=== PATIENT | female | born 1945 | race Caucasian/White ===

== ENCOUNTER 2018-11-15 20:23 | Inpatient (IN) | payer OTHER ==
[~2018-11-15] VITALS: Ht 154 cm; Wt 76.0 kg
[2018-11-15 20:25] VITALS: BP 146/68
--- NOTE | 2018-11-16 00:52 | NUR ---
PT ARRIVES TO UNIT VIA CART ACCOMPNIED BY AMBULANCE MOE FROM [facility] AT APPROX 1945. REPORTED TO HAVE BEEN BROUGHT IN BY BASKETBALL SCOUT AT [facility] CAROL FERNANDEZ [phone] WITH REPORTED INCREASING CONFUSION AND MOOD SWINGS-ERRATIC BEHAVIOR ACCORDING TO SHARI TREVIÑO-HE REPORTS PT "JUST ISN'T RIGHT" PER ED NOTES WITH NO SPECIFIC BEHAVIOR IDENTIFIED-ED NOTES REPORT PT TO BE LABILE-WITH EPISODES OF LOUD YELLING AND AGITATION AND EPISODES OF CALM COOPERATIVE BEHAVIOR. UPON INITITAL OBSERVATION UPON ARRIVAL TO UNIT JED IS NOTED TO BE SPEAKING RAPIDLY AND TO NO ONE IN PARTICULAR-AND CONVERSATION IS NOT RELEVENT TO TOPIC BEING DISCUSSED BY ENCODING CLERK PROVIDING TRANSPORT. HOWEVER UPON REAPPROACH APPROX 15 MINUTES LATER FOR ADMIT INTERVIEW WAS NOTED TO BE ORIENTED X3-ABLE TO PROVIDE HISTORY AND ANSWER QUESTIONS IN AN APPROPRIATE MANNER-CONVERSATION RELEVENT AND GOAL DIRECTED. NO NOTED OR REPORTED DELUSIONAL THINKING-AND SHOWS INSIGHT INTO MOOD ISSUES STATING "IT ISN'T TOO BAD NOW BUT I CAN TELL I'M NOT RIGHT IN THE HEAD AND I DON'T WANT IT TO GET WORSE-I HAVE TRIED TO KILL MYSELF BEFORE" VS OBTAINED,ORIENTED TO ROOM AND UNIT-OFFERED AND ACCEPTED PM SNACK AND H20. DENIES COMPLAINTS OF PAIN OR DISCOMFORT. AMBULATES WITH SBAX1 AND ROLLER WALKER
[2018-11-16 16:11] VITALS: BP 139/81
--- NOTE | 2018-11-16 16:23 | NUR ---
ASSUMED CARE AT 0715 TODAY. PT. IN BED WHEN STAFF ARRIVED. IS DRESSED IN HOSPITAL GOWN. UP FOR BREAKFAST. TOOK MEDICATIONS WITHOUT DIFFICULTY. INTERACTING WITH PEERS AND STAFF ALTHOUGH IT IS GUARDED INTERACTIONS. PT. WOULD BE ANXIOUS AT TIMES DURING INTERACTIONS AND CALM AT OTHER TIMES. NO ACTING OUT BEHAVIORS NOTED. DID ATTEND GROUPS WITH OTHER PEERS, BUT NOTICED BY THIS STAFF TO INTERACT WITH PEERS. ATE MEALS IN DINING ROOM. INDEPENDENT AMBULATION AND TOILETING NOTED. SPOKE WITH DR. PALMA AND DR. ZAMORA TODAY.
[2018-11-16 16:48] VITALS: BP 157/70
--- NOTE | 2018-11-16 17:05 | EKG ---
[place] [address] [address] [facility] [place] [address] ELECTROCARDIOGRAM REPORT Name: JED TREVIÑO Room #: 525- ADM IN M.R.#: [id number] ������������������ Admission: 11/15/18 ������������������ Attend Phys: Elías Flower DO Discharge: ������������������ Date of : 45 Report #: [id number] ����������������������������������������������������������������� [id number] THIS REPORT FOR: //name// [facility] Test Date: 2018-11-16 Test Time: 07:19:14 Pat Name: JED TREVIÑO Department: Room: [facility] Gender: F Data Integrity Analyst: ZAFAR : 1945 Requested By: Elías Flower Order Number: [id number] MD: Frankie Butterfield Measurements Intervals Force Rate: 71 P: 51 LA: 160 QRS: -28 QRSD: 109 T: -13 QT: 419 QTc: 456 Interpretive Statements Sinus rhythm Left ventricular hypertrophy Nonspecific T abnormalities, inferior leads No previous ECG available for comparison Electronically Signed On 11-16-2018 17:05:19 CDT by Frankie Butterfield [email or web address] ��������������������������������������������� <ELECTRONICALLY SIGNED> ���������������������������������������� By: Frankie Butterfield MD, [facility] ��������������������������������������������� 11/16/18 1705 0719 8 Frankie Butterfield MD, FACC /EPI
[2018-11-16 19:22] VITALS: BP 176/73
[2018-11-16 22:56] VITALS: BP 176/73
--- NOTE | 2018-11-17 04:50 | NUR ---
PT QUIET AND ON THE EDGE OF THE GROUP THIS PM. GOES IN AND OUT OF HER ROOM, BUT HAS STAYED MAINLY IN THE DAYROOM MOST OF THE NIGHT. IRRITABLE, AND SULLEN. RESPONDS TO STAFF IN SHORT HASEEB ANSWERS.
[2018-11-17 05:44] LABS: ABSOLUTE NEUTROPHILS 6.2 thou/uL (1.4-8.2); BASOPHILS 1.1 % (0.0-2.0); EOSINOPHILS 1.6 % (0.0-3.0); HEMATOCRIT 36.4 % (37.0-47.0); HEMOGLOBIN 12.1 gm/dL (12.0-15.0); LYMPHOCYTES 15.6 % (24.0-44.0); MCH 26.9 pg (26.0-34.0); MCHC 33.2 g/dL (28.0-37.0); MONOCYTES 10.7 % (1.0-8.0); PLATELET COUNT 291 thou/uL (150-400); RBC 4.49 mil/uL (4.20-5.00); RDW 14.4 % (10.5-14.5); WBC 8.7 thou/uL (4.0-11.0)
[2018-11-17 05:58] LABS: CREATININE 1.7 mg/dL (0.6-1.0); MAGNESIUM 1.8 mg/dL (1.8-2.4); POTASSIUM 4.2 mmol/L (3.5-5.1)
[2018-11-17 08:23] VITALS: BP 138/58
--- NOTE | 2018-11-17 15:50 | NUR ---
PATIENT HAS BEEN UP AND OUT ON THE UNIT MOST OF THE DAY, AMBULATES WITH ASSIST OF ROLLER WALKER, GAIT SLIGHTLY UNSTEADY. PATIENT TOOK ALL HER MORNING MEDICATION WHOLE WITHOUT DIFFICULTY. PATIENT IS EATING MEALS AND DRINKING FLUID WELL. SHE DENIES SUICIDAL AND HOMOCIDAL IDEATION. PATIENT RATED DEPRESSION 5/10, ANXIETY 4/10. PATIENT PRESENTS WITH EMOTIONS, CRIES INTERMITTENTLY. MOOD IS DEPRESSED, AFFECT IS SAD AND FLAT. PATIENT DENIES AUDITORY/VISUAL HALLUCINATIION, SHE PARTICIPATED IN GROUP THERAPY, WILL MONITOR FOR SAFETY.
[2018-11-17 17:40] LABS: URINE BILIRUBIN NEGATIVE (Negative); URINE BLOOD NEGATIVE (Negative); URINE CLARITY CLEAR; URINE COLOR YELLOW; URINE GLUCOSE-RANDOM* NEGATIVE (Negative); URINE KETONES NEGATIVE (Negative); URINE LEUKOCYTES-REFLEX NEGATIVE (Negative); URINE NITRITE-REFLEX NEGATIVE (Negative); URINE PROTEIN (DIPSTICK) NEGATIVE (Negative); URINE UROBILINOGEN 0.2 E.U./dl (0.2-1.0)
[2018-11-17 20:10] VITALS: BP 150/51
--- NOTE | 2018-11-17 23:16 | H ---
[facility] [place] [address] HISTORY AND PHYSICAL Name: JED TREVIÑO Room #: 525B-B ADM IN M.R.#: [id number] Admission: 11/15/18 ������������������ Attend Phys: Elías Flower DO Discharge: ������������������ Date of : 45 Report #: [id number] THIS REPORT FOR: //name// CC: Elías Flower [facility] unknown DATE OF SERVICE: 11/16/2018 INPATIENT PSYCHIATRIC EVALUATION ATTENDING PHYSICIAN: Elías Flower DO CONSULTING HOSPITALIST: Juany Woody MD REASON FOR ADMISSION: Psychosis, self-care failure. SOURCE OF INFORMATION: Interview with the patient, review of records at [facility]. HISTORY OF PRESENT ILLNESS: This is a 73-year-old female seen on Geriatric Psychiatry Unit. She was brought to the Emergency Room on 11/13/2018 following a 24-hour period of increased confusion, poor function with ADLs. The patient reported third episode of these symptoms within a 5-month period, 2 prior ones leading to admission including at least 1 at [facility] and [facility] Geriatric Psychiatry Unit. The patient has a history of outpatient visits at [facility] through Dr. Gonsalves for schizoaffective disorder. CURRENT MEDICATIONS: Aripiprazole 20 mg p.o. daily and Effexor XR 37.5 mg daily. The patient presented to [facility] ER via her senior case manager from [facility]. In the ED, the patient was having variable agitation, confusion behaviors, stripping off her clothes, throwing food, acting in childish manner, acted sick and disoriented. Braulio Sahu, health services administrator spoke to the patient's son and stated the patient was not making sense on Friday. Speech was pressured. She was acting childish. According to the patient's son, she has been taking her medication as scheduled and not been missing doses. There are 2 related incidents, the patient was having limited function with ADLs and incontinence. Son endorses the patient does not have any recent or historical diagnosis of dementia. In between these episodes, she has been normal functioning, mostly independent with her ADL care. He reports previous 2 episodes over the last 5 months presenting with the same symptoms. The patient was tangential in her speech yesterday in the ER as well as with me. The patient admits to have increasing racing thoughts recently and family reports the patient has been impulsive in her behaviors and having increased irritability. The patient has [facility] [address] [place] [address] HISTORY AND PHYSICAL Name: JED TREVIÑO Room #: 525B-B ADM IN .R.#: [id number] Admission: 11/15/18 ������������������ Attend Phys: Elías Flower DO Discharge: ������������������ Date of : 45 Report #: [id number] recent fall. She was afebrile in the ED. Denies being depressed. Also, of note, 2 previous psychiatric admissions occurred due to similar confusion and suicidal behaviors and acts such as jumping out of a moving vehicle. REVIEW OF SYSTEMS: PSYCHIATRIC: The aforementioned symptoms. NEUROLOGIC: Alert and oriented x 4. No involuntary movements. CONSTITUTIONAL: Negative weakness. HEENT: Negative. RESPIRATORY: Negative. CARDIOVASCULAR: Negative. GASTROINTESTINAL AND GENITOURINARY: Intermittent incontinence. MUSCULOSKELETAL: Generalized weakness. The patient's gait, ambulates with a walker. ALLERGIES: ISOPTIN AND TEGRETOL. CURRENT OUTPATIENT MEDICATIONS: Include Effexor XR 37.5 mg p.o. daily, Lasix 20 mg oral daily, Levothroid 88 mcg daily, Remeron 15 mg at bedtime, amlodipine 5 mg daily, aripiprazole 20 mg daily, cholestyramine p.r.n. for diarrhea, spironolactone 25 mg p.o. daily, trazodone 50 mg p.o. at bedtime p.r.n. SOCIAL HISTORY: Alcohol, tobacco or recreational drugs, denied use. The patient was born and raised in [place] primarily by her parents. Reports having 2 siblings. She states she has a sister with mental illness. 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 She is a high school graduate, some college. She is retired. She gets social security, 's care home. x 1, has 2 children. Suicide attempt history, history of starving self for desire to , history of attempt threw herself out of moving vehicle with desire to within the last 5 months. No legal history. MENTAL STATUS EXAMINATION: GENERAL: This is a well-developed, well-nourished, mildly obese, disheveled female in [facility]. The patient was alert and oriented to person and generally to time, entirely to place. Behavior was cooperative. Mood was happy. Affect was congruent, elevated. Speech was normal in rate and volume and tone. Language normal. Thought processes, frequently tangential, mastering questions, diverting historical and related topics. Thought content, no delusions, no homicidal ideation, suicidal ideation. Perceptual denied auditory or visual hallucinations. Attention, concentration impaired. Insight limited. Judgment poor. [facility] mental status examination was performed, the patient scored a 12/30. Impairments included delayed recall, cued recall from the story and clock drawing errors and attention. Her weight is 76 kilos, height [address] [address] HISTORY AND PHYSICAL Name: JED TREVIÑO Room #: 525B-B ADM IN ..#: [id number] Admission: 11/15/18 ������������������ Attend Phys: Elías Flower, DO Discharge: ������������������ Date of : 45 Report #: [id number] LABORATORY DATA: Yesterday, sodium 139, potassium 4.0, chloride 103, bicarbonate 25, anion gap 11, glucose 95, BUN 30, creatinine 1.4, GFR non- 37, calcium 9, osmolality 294. ALT 34, AST 33, alkaline phosphatase 141, direct bilirubin 0.1, direct 0.2. Troponin less than 0.01. White count 8.4, H and H 12.9 and 39.0, platelet count 283,000. Urinalysis showed trace leukocyte esterase, 3-5 wbc's, 1+ bacteria, negative UDS. Acetaminophen less than 10. Alcohol less than 10. Salicylate less than 0.3. TSH is low at 0.28, free T4 normal at 1.58. VITAL SIGNS: Today, temperature is 37.3, pulse rate 83, respirations 18, BP 157/70. FORMULATION: A 73-year-old female admitted for decompensated psychosis, schizoaffective disorder, bipolar type by history of cognitive impairment, unspecified; rule out major neurocognitive disorder due to SLUMS 08/30. PLAN: Evaluate, stabilize, obtain collateral. The patient is currently voluntary. I went ahead and started her on olanzapine 2.5 mg b.i.d. I discontinued Abilify, discontinued Effexor, started on Haldol 5 mg b.i.d. I would like to contact her family for additional collateral. The patient had neuropsychological testing in July 2018 and at that time, Dr. Woodard of [place] thought her cognitive impairment was multifactorial. At this juncture, I am questioning why she continues to decompensate behaviorally and cognitively. I think no matter what, the patient will likely need a placement. She is a full code at this time. ESTIMATED LENGTH OF STAY: 10-14 days. STRENGTHS: Relatively young age. WEAKNESSES: Chronic mental illness, frequent psychotic episodes. Time spent on interview, evaluation, review of records, coordination of care is at least 60 minutes. ��������������������������������������������� <ELECTRONICALLY SIGNED> ���������������������������������������� By: Elías Flower DO ��������������������������������������������� 11/17/18 2316 1742 09 Elías Flower DO /nt
[2018-11-18 03:07] VITALS: BP 150/51
--- NOTE | 2018-11-18 03:54 | NUR ---
PT OUT AND INTERACTING APPROPRIATLY WITH FEMALE PEERS.WATCHING TV. MORE ANIMATED THIS EVENING, DENIES SI, AND STATED THAT EXPECTS TO SLEEP BETTER. AFTER SNACKS AND MEDS WENT TO ROOM AND TO BED. SLEPT WELL THROUGH THE NIGHT, W/O INCIDENT.
[2018-11-18 06:06] LABS: CALCIUM 8.8 mg/dL (8.5-10.1); CREATININE 1.9 mg/dL (0.6-1.0); MAGNESIUM 1.9 mg/dL (1.8-2.4); POTASSIUM 4.2 mmol/L (3.5-5.1)
--- NOTE | 2018-11-18 11:16 | NUR ---
1000: Dr. Flower here, labs and meds reviewed, new orders rec. 1100: # 20g IV started to left hand with 1 attempt, tegaderm protective dsg applied, NS initiated to Lt hand IV site, rate 125ml/hr via pump over 4hrs to total 500ml total IV intake. Procedure explained to patient, roman. well and cooperative.
[2018-11-18 11:44] VITALS: BP 147/69
--- NOTE | 2018-11-18 15:02 | NUR ---
HEATHER spoke with pt Mr. Bynum concerning pt medication, and behaviors during her stay in the hospital. SW explained that the history show that the pt been in and out of the hospital within the last 6 months due to behavior disturbance. SW recommended that pt go into a LTC placement for care, and her wellbeing. Pt Mr. bynum stated that he is fine with her go into a nursing facility to get help that she needs. He stated that he loves his but she does need help with her care. SW stated that she will complete an level II screening, and will follow-up with him on next week.
--- NOTE | 2018-11-18 18:37 | NUR ---
7a-7p: Ambulates on unit with assist of walker, eats all meals in DR, appetite good, feeds self, no behaviors noted this shift, independent hygiene care done, wears pull-up briefs, oriented to x3, appropriate interaction with staff and other pts. Takes meds w/o problems, denies pain, nausea or discomfort.
[2018-11-18 20:16] VITALS: BP 105/48
--- NOTE | 2018-11-19 04:23 | NUR ---
ASSUMED CARE AT START OF SHIFT PT IN DAY ROOM WATCHING TV , QUIETY BUT WILL ANSWER QUESTION APPROPITAELY, CALM , FOLLOW COMMAND. UP WITH WALKER ADN IN HALLWAY FREQ, GAIT STABLE WITH WALKER. PT VOICED NO CONCERNS WHEN ASSESSED. PT SLEPT QUIETLY TRHOUGHOUT FREQ ROUNDING. WILL CONITNUE WITH CURRRENT PLAN OF CARE AND WILL REPORT CHANGES .
[2018-11-19 05:59] LABS: CALCIUM 8.9 mg/dL (8.5-10.1); CREATININE 2.1 mg/dL (0.6-1.0); MAGNESIUM 1.9 mg/dL (1.8-2.4); POTASSIUM 3.8 mmol/L (3.5-5.1)
[2018-11-19 09:51] VITALS: BP 140/51
--- NOTE | 2018-11-19 12:37 | NUR ---
# 20 g SL started to LAC with 2 attempts, 1st attempt to RFA without success, secured with tape. NS initiated @ 125ml/hr via pump, infusion volume 500ml over 4 hrs. Pt tolerated procedure well.
[2018-11-19 14:35] VITALS: BP 140/51
--- NOTE | 2018-11-19 16:04 | NUR ---
HEATHER and Dr. Flower met with pt concerning DPOA paperwork. Pt stated that she would like her to be the primary, and son Fidel as the secondary. Pt stated that she will complete the paperwork once she has a family meeting on November 20, 2018. SW spoke about the potential of the pt going to a LTC for behavior intervention. Pt stated that she wanted to go home but understand if she not able to due to her illiness, and her not being physically able to take care of her. SW stated that she will give her an application for Medicaid, and she will apply for a Level II screening. SW will follow-up with the pt on Friday.
--- NOTE | 2018-11-19 17:30 | NUR ---
7a-7p: IV therapy completed this shift. Ambulates with walker to DR, gait steady, denies pain, dizziness or nausea. Alert/oriented x3, cooperative with staff, follows instructions. Skin w/d, color natural pale, lung smith CTA bilat, negative for cough. Abd rounded, soft, BS active x4, LBM 11/19, refused Miralax this am. To radiology @ 0925 for Renal US ordered by Dr. Harrington.Dr. Flower here to see patient, new order rec. Patients called unit, status update given per this telegraphic typewriter installer and Dr. Flower. Up to BR for BM and to void x5 this shift, po intake adequate with approx 1800cc intake, denies pain or trouble with voiding.
[2018-11-19 19:58] VITALS: BP 106/52
--- NOTE | 2018-11-19 22:32 | NUR ---
PATIET RESTING IN BED. IS ALERT X4. TAKEN HER MEDS WITHOUT PROBLEMS. IV SITE HEALTHY IN LEFT AC AND FLUSHED WELL. NO BEHAVIORS NOTED. VS STABLE. UP WITH WALKER. TAKES CARE OF HER OWN NEEDS. RENAL US DONE TODAY. ON ROOM AIR. TAKING DIET WELL. CONT PLAN OF CARE. SLEEPING AT PRESENT TIME.
--- NOTE | 2018-11-20 04:16 | NUR ---
PATIENT REMAINS SLEEPING. DENIES ANY PAIN. BILATERAL LEGS ON PILLOWS FOR COMFORT. NO BEHAVIORS NOTED. TAKING FLUIDS WELL. IV SITE HEALTHY. CONT PLAN OF CARE.
[2018-11-20 05:07] LABS: CALCIUM 8.7 mg/dL (8.5-10.1); CREATININE 1.8 mg/dL (0.6-1.0); POTASSIUM 4.3 mmol/L (3.5-5.1)
[2018-11-20 07:20] VITALS: BP 96/46
--- NOTE | 2018-11-20 09:16 | NUR ---
PATIENT UP ON UNIT - AGREEABLE AND RESPONSIVE TO QUESTIONS ADDRESSED TO HER. DENIED ANY S/I - SOME ANXIETY PARTLY DUE TO SEVERAL LOOSE BOWEL MOVEMENTS SHE HAD. ALSO WAS SOMEWHAT UPSET WITH HER INABILITY TO SLEEP THROUGH THE NIGHT - STATED HAD TO GET UP SEVERAL TIMES TO UTILIZE THE BATHROOM BOTH TO URINATE AND HAVE BOWEL MOVEMENT. CLAIMS ONCE SHE WAS INCONTINENT. GOOD APPETITE - DID NOT DRESS - REMAINED IN GOWN. MEDICATION COMPLIANT. ADVISED DR. EATON ON LOOSE STOOLS ANDIMMODIUM ORDERED. FLUSHED IV IN LEFT FOREARM - REMAINS PATENT. GIVEN IMMODIUM AT 0925 TO AID WITH LOOSE STOOLS. PARTICIPATED IN GROUPS AND RESPONDED TO QUESTIONS.
--- NOTE | 2018-11-20 13:07 | NUR ---
Met with family and patient to enact DPOA. Son Fidel is now appointed DPOA. Patient happy with this choice, but also wants to return to [facility] after discharge and live with . and son feel that it may be better to have a level I assessment completed and consider having patient live in a watermaster care facility. Recieved a VM from a Andie Short from [facility] wanting a update on continuity of care. Called back and left a VM. That # is [phone]. After DPOA was completed son and visited with patient and left. Patient was happy for the visit. SW to reach out to [facility] on Friday to request a screening.
[2018-11-20 19:36] VITALS: BP 130/50
[2018-11-20 22:26] VITALS: BP 130/50
[2018-11-20 22:29] VITALS: BP 130/50
--- NOTE | 2018-11-21 02:44 | NUR ---
PT QUIET AND BUT INTERACTING APPROPRIATLY WITH STAFF AND PEERS. TOOK HS MEDS ORDERED. IV FLUSHED PER PROTOCOL. NO FURTHER LOOSE STOOLS THIS PM. SLEPT WELL THROUGH THE NIGHT.
[2018-11-21 12:22] VITALS: BP 129/66
--- NOTE | 2018-11-21 14:59 | NUR ---
ASSUMED CARE AT 0715. PT. UP ON THE UNIT IN A DRESS. AFTER BREAKFAST, SHE WANTED TO WASH UP BUT REFUSED SHOWER. SHE CHANGED INTO A HOSPITAL GOWN AND HER DRESS WAS WASHED. SHE WAS PLEASANT AND COOPERATIVE WITH THIS. SHE TOOK HER MEDICATIONS WITHOUT PROBLEMS NOTED. AT NOON SHE WAS SITTING AT THE DINING ROOM TABLE TALKING TO HERSELF. LATER SHE WAS AMBULATING IN THE HALLWAY WITH HER WALKER TALKING TO HERSELF SHE WAS WALKING. SHE ATTENDED AFTERNOON GROUP IN THE SMALL CONFERENCE ROOM. HAS BEEN ON THE UNIT MOST OF THE DAY. HER BEDDING WAS CHANGED. DID TALK TO THIS GLAZE GRINDER, BUT WAS SELECTIVE IN HER CONVERSATION LIMITING IT TO SHORT CONVERSATIONS AND MAINLY ABOUT NEEDS. WHEN ASKED HOW SHE WAS DOING SHE SAID, I'M FINE. WHEN DO I GO HOME?
[2018-11-21 20:20] VITALS: BP 142/59
--- NOTE | 2018-11-22 04:00 | NUR ---
UPON INITIAL ASSESSMENT THIS PM WAS NOTED TO WALKING RAPIDLY IN HALLWAYS-DRAGGING WALKER BEHIND HER-REQUIRED SEVERAL VERBAL PROMPTS TO ACKNOWLEDGE THIS NURSES PRESENCE SHE APPEARED TO BE STARING STRAIGHT AHEAD AND INTERNALLY FOCUSED-DID AGREE TO SIT DOWN FOR BRIEF TIME AND INSTRUCTED TO TAKE DEEP BREATHS AND SLOW DOWN NOTED TO BE SLIGHTLY SHORT OF BREATH-O2 SAT CHECKED AND NOTED TO BE 90 PERCENT INITALLY- AFTER SITTING FOR 2-3 MINUTES QUIETLY 02 SAT RECHECKED AND IS 96 PERCENT ON RA. DID APPEAR TO REST QUIETLY IN ROOM FOR APPROX 1 HR BEFORE NOTED TO BE IN HALLWAY WALKING RAPIDLY-DIFFICULT TO REDIRECT BUT AFTER 2-3 RERQUESTS DID COME SIT BY THIS NURSE IN DAYRROM-SPEAKING RAPIDLY AND SPEECH IS [id number] INFORMED I COULD NOT UNDERSTAND WHAT SHE WAS SAYING STATES "ITS PIG LATIN" RUNNING HANDS UP AND DOWN WALKING AND REPEATING PHRASES SEVERAL TIMES ALMOST IN A "CHANTING-LIKE" MANNER-AT ONE POINT YELLED OUT LOUDLY UNINTELLIGABLE WORD BEFORE BEGINNING HUMMING QUIETLY TO SELF.
[2018-11-22 06:04] LABS: CALCIUM 9.3 mg/dL (8.5-10.1); CREATININE 1.8 mg/dL (0.6-1.0); POTASSIUM 3.8 mmol/L (3.5-5.1)
--- NOTE | 2018-11-22 06:36 | NUR ---
HAS BEEN UP IN DAYROOM DOZING FOR SHORT INTERVALS IN CHAIR SINCE APPROX. 0045-WILL SIT QUIETLY WITH EYES CLOSED FOR APPROX 2-10 MINUTES BEFORE OPENING EYES AND MUMBLING INCOHERENTLY-AM LABS DRAWN AND NA NOTED TO BE 130-JESS ROJO TEXTED RE THIS RESULT AND CLINICAL IMPRESSION OF SLEEPLESSNESS AND INCREASED CONFUSION
[2018-11-22 07:10] VITALS: BP 114/41
--- NOTE | 2018-11-22 10:43 | NUR ---
ASSUMED PT CARE @ 0700. UP IN DAYROOM @ SHIFT CHANGE, ATE BREAKFAST IN DINING ROOM. PT PLEASANT & COOPERATIVE WHEN GREETED THIS AM. SALINE LOCK TO L FOREARM FLUSHED EASILY AND SITE CLEAR. NIGHT NURSE TEXTED BUILDING ECONOMIST TAX CLERK AT SHIFT CHANGE TO INFORM OF SODIUM LEVEL 130 (L). COMPLAINT W/MEDICATIONS. NO COMPLAINTS OR PAIN VOICED. NO SI/HI. NOTED TALKING/MUMBLING TO SELF INTERMITTENTLY. ISOLATIVE/WITHDRAWN WHEN IN DAYROOM, SITS ALONE AT TABLE. MINIMAL SPONTANEOUS INTERACTION W/OTHERS. COMPLETED AM CARE W/ASSIST OF ONE IN TUB ROOM. CONTINUE TO MONITOR THROUGHOUT SHIFT.
--- NOTE | 2018-11-22 10:45 | NUR ---
Date of Admission: 11/15/18 Date of Activity Therapy Assessment:11/18/2018 Activity Goal: To increase lesiure awareness and coping skills to aid in adjustment of possible placement in LTC facility. Initial Goal:To attend 2 groups per day. Weekly progress towards goal:Pt did not achieve her goal. Pt attends most groups but passively participates. Pt is not consistently attending 2 groups per day. Group participation level:Moderate Behaviors observed: Pt was observed sleeping in several groups. Pt was a passive participant in most groups she attended. Pt appeared oriented. Pt's wandering has decreased. Plan: No change towards goal
--- NOTE | 2018-11-22 10:58 | NUR ---
SON HERE TO VISIT PT, SITTING IN DAYROOM. PT REFUSED MIRALAX THIS AM REPORTING SHE HAS HAD A COUPLE OF FORMED BM'S TODAY. UP AMBULATING IN HALLWAY, INTERMITTENTLY WITH STEADY GAIT. CONTINUE TO MONITOR THROUGHOUT SHIFT.
--- NOTE | 2018-11-22 12:32 | NUR ---
PT GIVEN IMMODIUM PRN FOR DIARRHEA X2. UP IN DINING ROOM FOR LUNCH -COMPLIANT. WILL CONTINUE TO MONITOR THROUGHOUT SHIFT.
--- NOTE | 2018-11-22 14:58 | NUR ---
DR PALMA PAGED TO FOLLOW UP ON SODIUM LEVEL =130. DR. PALMA TO UNIT AND MET W/PT. DISCUSSED SODIUM LEVEL AND MONITORING FLUID/WATER INTAKE TO HELP IMPROVE SODIUM LEVEL. PT VOICED HER UNDERSTANDING. SALINE LOCK WAS D/C'D PER DR. PALMA. PT RESTING QUIETLY IN BED. DID NOT ATTEND AFTERNOON GROUP. CONTINUE TO MONITOR THROUGHOUT SHIFT.
--- NOTE | 2018-11-22 17:58 | NUR ---
NAPPED DURING AFTERNOON. ATE DINNER IN DINING ROOM W/ PEER. NO ACUTE DISTRESS. COOPERATIVE BEHAVIOR. CONTINUE TO MONITOR THROUGHOUT REMAINDER OF SHIFT.
--- NOTE | 2018-11-22 18:33 | NUR ---
COLD HEADER OPERATOR PAGED DR. MINERVA FELIPE IN ATTEMPT TO CONFIRM ORDERS DISCUSSED DURING HIS ROUNDING W/PT THIS AFTERNOON. NO RESPONSE FROM OF THIS TIME. WILL PASS ON TO ONCOMING SHIFT.
[2018-11-22 19:33] VITALS: BP 114/46
--- NOTE | 2018-11-23 03:51 | NUR ---
OBSERVED IN DAYROOM SITTING QUIETLY WITH PEERS UPON INITAL OBSERVATION. IS NOTED TO SIT ON PERIPHERY OF GROUP AND LITTLE NOTED CONVERSATION OR INTERACTION WITH OTHERS. BLUNTED AFFECT- DELAYED VERBAL RESPONSES. DENIES A/V HALLUCINATIONS WHEN ASKED-NO NOTED OR REPORTED DELUSIONAL THINKING ALTHOUGH APPEARS DISENGAGED FROM PEERS AND INTERNALLY FOCUSED. DENIES ACUTE ANXIETY AND DESCRIBES MOOD "GOOD I VISITED WITH MY SON" DENIES SI/HI OR THOUGHTS OF SELF HARM. DESCRIBES THOUGHTS "SORT OF FOGGY" BUT UNABLE TO ELOBORATE FURTHER. SPEECH IS MONOTONE. NEATLY GROOMED- ORIENTED TO PLACE,TIME AND SITUATION AND ABLE TO PROVIDE ACCURATE INFORMATION RE MD VISIT EARLIER IN THE DAY STATING "HE TOLD ME I MAY BE DRINKING TOO MUCH WATER" MILD SLURRED SPEECH AFTER HS HALDOL ADMINISTRATION,SMALL AMOUNT DROOLING WHICH SHE ATTRIBUTES TO ILL FITTING DENTURES-DENIES DIFFICULTY SWALLOWING-NO COGWHEEL RIGIDITY NOTED UPON EXAM. GAIT SLOW BUT STEADY WITH USE OF ROLLER WALKER. BLOOD PRESSURE AT 2100 114/46-DENIES DIZZINESS-ENCOURAGED TO GET UP SLOWLY/ASK FOR ASSIST-2100 CLONIDINE 0.2MG HELD.
[2018-11-23 07:15] VITALS: BP 141/53
[2018-11-23 08:55] LABS: CALCIUM 9.8 mg/dL (8.5-10.1); CREATININE 1.8 mg/dL (0.6-1.0); POTASSIUM 3.9 mmol/L (3.5-5.1)
--- NOTE | 2018-11-23 11:50 | NUR ---
Nutrition: pt admitted with schizoaffective disorder with increased confusion. Seen for LOS. Pt eating well, 50-100% of meals on regular diet. Noted recent excessive fluid intake, hyponatremia, now normalized. PMH HTN, hypothyroidism. LISA. Pt requesting a soft diet due to her dentures being loose and also low sodium-ordered. Consider low risk at this time.
[2018-11-23 11:53] VITALS: BP 141/53
--- NOTE | 2018-11-23 15:43 | NUR ---
ASSUMED CARE AT 0715 TODAY. PT. UP FOR BREAKFAST. SHE WAS NOTED ON SEVERAL OCCASIONS TO BE TALKING TO HERSELF. SHE DENIES SI/HI. BUT IS HAVING AVH. SHE HAD AN EEG TODAY. SHE HAS BEEN COOPERATIVE WITH MEDICATIONS. EATS MEALS BUT TAKES 1 1/2 HOURS TO EAT EACH MEAL. DID ATTEND GROUPS TODAY. WAS GIVEN A SHOWER THIS AFTERNOON AFTER EEG WAS CONCLUDED. CALLED WITH UPDATE ON PT.
[2018-11-23 20:06] VITALS: BP 149/58
[2018-11-24 00:52] VITALS: BP 149/58
[2018-11-24 00:56] VITALS: BP 149/58
--- NOTE | 2018-11-24 03:43 | NUR ---
Pt was in living area eating dinner at beginning of . Pt singing and talking to herself in living area, room and when ambulating in taylor with walker. Pt compliant with medications. Pt started to intermittently scream after 2100 until 2200. She was approached by staff to stop her outbursts because they were scaring other patients and she complied. Pt spent approximately 20 minutes brushing her dentures in her room. Pt awakened at 0330 and sat in the living area where she continued with singing and talking to herself.
[2018-11-24 06:46] LABS: CALCIUM 9.1 mg/dL (8.5-10.1); CREATININE 1.8 mg/dL (0.6-1.0); POTASSIUM 3.6 mmol/L (3.5-5.1)
--- NOTE | 2018-11-24 09:52 | EEG ---
[facility] [place] [address] ELECTROENCEPHALOGRAM Name: JED TREVIÑO Room #: 525B-B ADM IN M.R.#: [id number] ������������������ Admission: 11/15/18 ������������������ Attend Phys: April Finn Discharge: ������������������ Date of : 45 Report #: [id number] ����������������������������������������������������������������� [id number] THIS REPORT FOR: //name// CC: Elías MCMANUS unknown DATE OF SERVICE: 11/23/2018 This patient is being evaluated for the possibility of seizures. The patient's EEG was done by placing the electrodes by standard 10-20 system of electrode placement. Both referential and sequential montages were used for recording. Background activity in this patient's EEG is about 11 Hz and 40 microvolts. The patient became drowsy that is associated with bilateral slowing and vertex sharp waves. Photic stimulation was unremarkable. Throughout the record, no active epileptiform activity was noticed. IMPRESSION: This patient's EEG is unremarkable. No active epileptiform activity was noticed. It might be mentioned that EEG can be normal in a patient with seizure disorder. Thank you very much for this referral. ���������������������������������������� <ELECTRONICALLY SIGNED> ���������������������������������������� By: Kike Hernandez MD ��������������������������������������������� 11/24/18 0952 1710 1730 Kike Hernandez MD /nt
--- NOTE | 2018-11-24 12:10 | NUR ---
SW met with pt concerning completing a level II screening to be able to be accepted into a [facility] facility. Pt stated that she understand that her is declining with his health, and he is unable to take care of her. Pt stated that she would like her family to be active in her care, and don't leave her in a nursing facility to by herself. SW reassured the pt that her family cares about her, and will make sure she is recieving the best care. SW will follow-up with pt upon discharge.
--- NOTE | 2018-11-24 12:36 | NUR ---
ASSUMED PATIENT CARE AT 0715. PATIENT UP IN D.R., SITTING AT TABLE. ATE WELL AFTER NURSE ASSISTED WITH DENTURE ADHESIVE FOR HER DENTURES. CALM MOOD, FIXED AFFECT, OBSERVED TALKING TO SOMEONE WHO IS NOT THERE. PATIENT'S BP 118/42, HR 54. NURSE PALPATED WEAK, THREADY PULSE WHEN ASSESSING AT APPROXIMATELY 0830. DR. FORREST NOTIFIED, WHO ORDERED STAT EKG. RESULTS READ BY DR. ZAMORA AND DR. FORREST; NO NEW ORDERS. CONTINUE TO MONITOR.
--- NOTE | 2018-11-24 17:12 | EKG ---
[address] [place] [address] ELECTROCARDIOGRAM REPORT Name: JED TREVIÑO Room #: [facility] ADM IN M.R.#: [id number] ������������������ Admission: 11/15/18 ������������������ Attend Phys: Elías Flower DO Discharge: ������������������ Date of : 45 Report #: [id number] ����������������������������������������������������������������� [id number] THIS REPORT FOR: //name// [facility] Test Date: 2018-11-24 Test Time: 10:41:25 Pat Name: JED TREVIÑO Department: Room: [facility] Gender: F Anvil Worker: Garrison PETERSEN : 1945 Requested By: Elías Abraham Order Number: [id number] MD: Frankie Butterfield Measurements Intervals [place] Rate: 60 P: 32 MT: 177 QRS: -31 QRSD: 107 T: -6 QT: 473 QTc: 473 Interpretive Statements Sinus rhythm Abnormal R-wave progression, early transition Left ventricular hypertrophy Borderline T abnormalities, inferior leads Compared to ECG 11/16/2018 07:19:14 No significant changes Electronically Signed On 11-24-2018 17:12:37 CDT by Frankie Butterfield [email or web address] ��������������������������������������������� <ELECTRONICALLY SIGNED> ���������������������������������������� By: Frankie Butterfield MD, [facility] ��������������������������������������������� 11/24/18 1712 1041 1041 Frankie Butterfield MD, [facility] /EPI
[2018-11-24 17:43] LABS: URINE BILIRUBIN NEGATIVE (Negative); URINE BLOOD NEGATIVE (Negative); URINE CLARITY CLEAR; URINE COLOR YELLOW; URINE GLUCOSE-RANDOM* NEGATIVE (Negative); URINE KETONES NEGATIVE (Negative); URINE LEUKOCYTES NEGATIVE (Negative); URINE NITRITE NEGATIVE (Negative); URINE PROTEIN (DIPSTICK) NEGATIVE (Negative); URINE UROBILINOGEN 0.2 E.U./dl (0.2-1.0)
[2018-11-24 19:52] VITALS: BP 134/50
[2018-11-25 00:26] VITALS: BP 134/50
--- NOTE | 2018-11-25 04:30 | NUR ---
PT OUT IN DAY ROOM WITH PEERS AND STAFF AT [facility] OF SHIFT. MORE QUIET THIS EVENING. TOOK HS MEDS SCHEDULED. UP A COUPLE OF TIMES DURING THE NIGHT. WANTING TO HAVE STAFF TUCK HER IN BED. ASKING FOR SLEEPING PILL X1. TOLD HER WE WILL PASS ALONG TO HER DESIRE FOR SLEEP MED.
[2018-11-25 05:37] LABS: CALCIUM 9.3 mg/dL (8.5-10.1); CREATININE 1.7 mg/dL (0.6-1.0); POTASSIUM 3.7 mmol/L (3.5-5.1)
[2018-11-25 12:58] VITALS: BP 131/51
--- NOTE | 2018-11-25 15:48 | NUR ---
ASSUMED CARE AT 0715 THIS MORNING. ON THE UNIT FOR MEALS AND GROUPS. COMPLIANT WITH MEDICATIONS. NO AGRESSION NOTED. DENIES HI/SI, DOES STATE SHE HAS HAS AVH, STATING HER IS TALKING TO HER. NOTED TO TALK TO HERSELF LESS TODAY BUT DID NOT THIS ON TWO SEPERATE OCCASIONS. HAS REPORTED GOING TO THE BATHROOM AT LEAST 3 TIMES TODAY. HAS NOT HAD ANY INCONTINENT EPISODES TODAY. SHOWERED TODAY AND DONNED CLEAN CLOTHES.
[2018-11-25 20:26] VITALS: BP 156/63
--- NOTE | 2018-11-26 00:49 | NUR ---
BLUNTED AFFECT AND DELAYED VERBAL RESPONSES NOTED DURING 1;PM ASSESSMENT. WAS VISIBLE IN DAYROOM WITH PEERS BRIEFLY BEFORE GOING TO ROOM TO "PUT MY FEET UP" DOES REPORT BILATERAL LE AND BACK PAIN RATED A 6 OR 7 AT HS TONIGHT. TOPICAL ANALGESIC RUB APPLIED PRN TO LOW BACK AND CALVES-FEET ELEVATED ON PILLOW. WHEN ASKED ABOUT MOOD STATES "JUST TIRED" -DENIES ACUTE ANXIETY-DENIES A/V HALLUCINATIONS WHEN ASKED.DENIES RACING THOUGHTS-WHEN ASKED TO DESCRIBE THOUGHTS STATES "FUZZY SORT OF-NOT VERY GOOD" INFORMED OF MD ORDER TO SCAN BLADDER AFTER SHE VOIDS STATES "I DON'T HAVE TO RIGHT NOW" NO BLADDER DISTENTION NOTED DURING PM EXAM-ASKED TO ALERT STAFF WHEN NEEDING TO VOID DURI NG NIGHT.
--- NOTE | 2018-11-26 04:57 | NUR ---
AWAKE AT 0300 REQUESTING TO USE BR-VOIDED APPROX 150CC-BLADDER SCAN COMPLETED PER ORDER-WITH SCAN RESULTS INDICATING APPROX 236ML OF URINE IN BLADDER. PT INFORMED OF NEED FOR UA-HATPAN PLACED IN TOILET-DENIES FEELING PAIN/DISCOMFORT/PRESSURE IN BLADDER AREA-STATING "I'M JUST GOING A LOT I THINK 8 OR 9 TIMES TODAY" I
[2018-11-26 12:23] LABS: URINE BILIRUBIN NEGATIVE (Negative); URINE BLOOD NEGATIVE (Negative); URINE CLARITY CLEAR; URINE COLOR YELLOW; URINE GLUCOSE-RANDOM* NEGATIVE (Negative); URINE KETONES NEGATIVE (Negative); URINE LEUKOCYTES-REFLEX NEGATIVE (Negative); URINE NITRITE-REFLEX NEGATIVE (Negative); URINE PROTEIN (DIPSTICK) NEGATIVE (Negative); URINE SPECIFIC GRAVITY <= 1.005 (1.005-1.035); URINE UROBILINOGEN 0.2 E.U./dl (0.2-1.0)
--- NOTE | 2018-11-26 13:14 | NUR ---
HAVE CALLED TO THE [facility] FOR REHAB AND NURSING ON SEVERAL TIMES TODAY BUT UNABLE TO GET THEM ANSWER. PHONE #[phone].
[2018-11-26 13:27] VITALS: BP 131/51
[2018-11-26 14:07] VITALS: BP 133/49
--- NOTE | 2018-11-26 18:05 | NUR ---
ASSUMED CARE AT 0715. PT. WAS SLEEPY THIS MORNING. SHE WAS AWAKE THIS AFTERNOON. SHE NOTED TO BE TALKING TO HERSELF, SCREAMED LOUDLY TIMES ONE, C/O AVH TODAY, YELLING AT PEERS, WANTING HER BIBLE, TALKING IN UNINTELLIGABLE LANGUAGES. NOTIFIED AND ORDERED HALDOL 5 MG PRN. THIS WAS GIVEN ORDERED. THIS WAS INEFFECTIVE IN STOPPING HER BEHAVIORS. DID TAKE HERSELF TO THE BATHROOM TODAY. COOPERATIVE WITH MEDICATIONS, GROUPS. DID EAT ON THE UNIT AND ATE WELL. DENIES HI/SI.
[2018-11-26 19:38] VITALS: BP 152/53
--- NOTE | 2018-11-26 22:45 | NUR ---
ASSUMED CARE OF THE PT AT 1915PM. THE PT HAS BEEN WALKING AROUND THIS EVENING WITH HER WALKER. CONTINUES TO HAVE A FLAT AFFECT. TOOK HER HS MEDICATIONS WITHOUT ANY DIFFICULTY. DENIES ANXITEY AND DEPRESSION. DENIES SI/HI, A/V HALLUNICATIONS. DENIES RACING THOUGHTS AND NIGHTMARES. REMAINS ON 12 MINUTE CHECKS FOR HER SAFETY.
[2018-11-27 04:05] LABS: CALCIUM 9.3 mg/dL (8.5-10.1); CREATININE 1.6 mg/dL (0.6-1.0); POTASSIUM 3.9 mmol/L (3.5-5.1)
--- NOTE | 2018-11-27 04:14 | NUR ---
THE PT HAS BEEN UP TO THE BATHROOM X 2, WITH THE ASSISTANCE OF ONE PERSON. CALM ET COOPERATIVE WITH STAFF. TOOK HER HS MEDICATIONS WITHOUT ANY DIFFICULTY. WALKS WITH A SLOW STEADY GAIT WHILE PUSHING HER WALKER. DENIES PAIN WHEN SHE GOT UP TO GO TO THE BATHROOM. REMAINS ON 12 MINUTE CHECKS FOR HER SAFETY.
--- NOTE | 2018-11-27 06:02 | NUR ---
THE PT SLEPT 7 HOURS LAST NIGHT.
[2018-11-27 07:38] VITALS: BP 148/62
--- NOTE | 2018-11-27 09:00 | NUR ---
0800: Care assumed, awake, ambulates independently to BR, uses walker for distance ambulating. To DR for a.m. meal, feeds self, consumed 100%, declined Miralax, states 11/26 was last BM. Occasional verbal babbling noted while in DR, takes meds w/o difficulty. Mood is calm, cooperative with occasional verbal comment to other pt to "be quiet."
[2018-11-27 11:15] VITALS: BP 148/62
[2018-11-27 20:00] VITALS: BP 127/55
--- NOTE | 2018-11-27 23:02 | NUR ---
ASSUMED CARE OF THE PT AT 1930 PM. ALERT ET ORIENTED X 2. MAKES NEEDS KNOWN. WALKS WITH A WALKER AND A STEADY GAIT. SHE TOOK HER HS MEDICATIONS WITHOUT ANY DIFFICULTY. SHE HAS BEEN CRYING A LITTLE AFTER THIS ROLLWAY MAN CAME ON DUTY. SHE WAS IN THE DINING ROOM WHEN THIS ROLLWAY MAN CAME ON DUTY. DENIES PAIN, ANXIETY AND DEPRESSION. REMAINS ON 12 MINUTE CHECKS FOR HER SAFETY.
--- NOTE | 2018-11-28 02:52 | NUR ---
THE PT HAS BEEN SLEEPING MOST OF THE NOC SHIFT. DENIES ANY PAIN OR ANXIETY OR DEPRESSION. REMAINS ON 12 MINUTE CHECKS.
--- NOTE | 2018-11-28 05:58 | NUR ---
THE PT SLEPT 8.2 HOURS LAST NIGHT.
--- NOTE | 2018-11-28 11:06 | NUR ---
KYLAH recieved a call from Pt's @1100. He was checking on the staus of the Pt. Kylah informed the Pt is doing well on the unit, sleeping about 8 hours a night ( per nursing notes), and seems to be in a decent mood. KYLAH informed it was recommended Pt be discharged to LTC facility, informed about the level II process and that transition social worker Humberto has completed the paper work. Kylah also encouraged Pt's to call back during the week and continue to check in with LARON Paul. Thier were not further questions or concerns.
--- NOTE | 2018-11-28 14:09 | NUR ---
PATIENT HAS BEEN UP ON UNIT - COMPLIANT WITH MEDICATIONS, APPETITE GOOD. RESPONSIVE TO QUESTIONS ADDRESSED TO HER. STATED FEELING BETTER - DENIES ANY S/I - STILL APPEARS DISHOVELED - REMAINS IN GOWN - RELUCTANT TO GET DRESSED. QUIET - PENSIVE - NO PAIN DISCOMFORT - AGREEABLE - DOZING OFF AND ON IN DINING AREA - HAS BEEN UP SINCE 3 AM. AFFECT BRIGHT - SMILING AND MOOD POSITIVE. FEELS READY TO DISCHARGE. CALLED WHILE SHE WAS IN GROUP.
--- NOTE | 2018-11-29 03:16 | NUR ---
Tearful tonight during 1;1 interaction-observed to have sad facial expression,flat affect and minimal interaction with staff or peers-ate snack and went immediatly to bed-when nurse approached in room with hs meds given feedback that she appeared sad tonight and she immediatly began to cry-difficult to understand what she was saying as she was crying as speech was garbled-but did express feeling sad about the recent increase in her medicine-jaquelin stating "i was just taking 2mg and now it is 15mg-i don't think it is helping-also reports feeling anxious re dx dementia-"The Dr said I have it-my memory isn't real good i thought today was friday" does respond to support/reassurance from this nurse. appeared to sleep from approx 1130 to 0100-has been observed awake on rounds talking or praying to self in room -dozing in short intervals.
[2018-11-29 07:40] VITALS: BP 147/72
--- NOTE | 2018-11-29 10:33 | NUR ---
ASSUMED PATIENT CARE AT 0700. PATIENT UP IN D.R. AT THAT TIME, ATE PARTIAL BREAKFAST. COMPLIANT WITH A.M. MEDICATIONS. FLAT AFFECT, NO BEHAVIORS, COOPERATIVE MOOD. CONTINUE TO MONITOR.
--- NOTE | 2018-11-29 11:28 | NUR ---
HALDOL, 2.5 MG NOT GIVEN AT O900. NURSE LEARED FROM PHARMACIST THAT ORDER WAS ENTERED WITH "SIG" WHICH AUTOMATICALLY PROMPTS PHARMACIST TO ENTER AT 0900. MEDICATION HAS TO BE ENTERED FOR SPECIFIC TIME, IN ORDER FOR CORRECT TIME DESIRED.
--- NOTE | 2018-11-29 18:38 | NUR ---
PATIENT BEGAN CHANTING AND MOVING HER ARMS AND HANDS WHILE SITTING IN THE DINING ROOM ABOUT 5:45. NOW PACING BACK AND FORTH FROM ROOM TO LARGE GROUP ROOM. STAFF PERSUADED HER TO SIT DOWN ON THE SOFA TO WATCH T.V. PLACED HER YELLOW SLIPPER SOCKS ON, WHICH SHE HAD REMOVED AND WALKING WITH BARE FEET. SAYING INCOHERENT STATEMENTS. SITTING QUIETLY IN D.R.
[2018-11-29 19:46] VITALS: BP 125/48
--- NOTE | 2018-11-30 04:23 | NUR ---
LABILE MOOD THIS PM-UPON INITIAL INTERACTION AT APPROX 1930 WAS IN DAYROOM-SITTING WITH FEMALE PEER-FLAT AFFECT-MINIMAL RESPONSE TO GREETING FROM STAFF. DOES APPEAR DROWSY-SPEECH MUMBLED AND DIFFICULT TO UNDERSTAND. SHORT TIME LATER WHEN APPROACHED WITH HS MEDICATIONS WAS ABRUPT WITH VERBAL RESPONSES,ANGRY FACIAL EXPRESSION AND INTENSE STARING EYE CONTACT-RESPONSES TO QUESTIONS FROM NURSING AT TIMES INCOHERENT-LONG RAMBLING RESPONSES INCLUDING SEVERAL TOPICS INCLUDING DENOMINATIONAL, NAMES OF SEVERAL OF HER FRIENDS AND ISCOSCOLES TRIANGLES AT TIMES RAISING VOICE,ANGRY FACIAL EXPRESSION /SUSPICIOUS OF STAFF STATING "WHY DON'T I HAVE ANY DIAPERS IN MY ROOM AND SHE DOES. SAT IN DAYROOM UNTIL APPROX 1145 CHANTING/RAISING ARMS OVER HEAD. BEGINS A LONG RAMBLING DIALOGUE ABOUT ISCOSOLES TRIANGLES ON HER WALKER
[2018-11-30 07:07] LABS: CALCIUM 9.8 mg/dL (8.5-10.1); CREATININE 1.6 mg/dL (0.6-1.0); POTASSIUM 4.2 mmol/L (3.5-5.1)
[2018-11-30 07:35] VITALS: BP 166/62
--- NOTE | 2018-11-30 07:45 | NUR ---
PT IN DINNING ROOM FOR BREAKFAST. TOLERATING DIET. COMPLAINING OF RT LEG MORE SHAKEY THAN LEFT LEG. NOTICE TREMORS AROUND MOUTH, LOWER EXT, AND UPPER EXT. TONGUE SLIGHT TREMORS. DENIES ANY PAIN AT THIS TIME. UP WITH WALKER WITH AMBULATION. FLAT AFFECT.
[2018-11-30 08:00] VITALS: BP 166/62
--- NOTE | 2018-11-30 13:49 | NUR ---
ATTENDED AM AND PM GROUP TODAY.
[2018-11-30 14:37] LABS: HEMATOCRIT 32.4 % (37.0-47.0); HEMOGLOBIN 10.5 gm/dL (12.0-15.0); MCH 26.6 pg (26.0-34.0); MCHC 32.4 g/dL (28.0-37.0); MCV 82.1 fL (80.0-100.0); RBC 3.94 mil/uL (4.20-5.00); RDW 14.6 % (10.5-14.5); WBC 7.7 thou/uL (4.0-11.0)
--- NOTE | 2018-11-30 17:07 | NUR ---
NO BEHAVIORS SEEN TODAY AT THIS TIME.
[2018-11-30 19:35] VITALS: BP 149/69
[2018-12-01 00:47] VITALS: BP 149/69
--- NOTE | 2018-12-01 04:17 | NUR ---
PT QUIET AND GUARDED. SPENP MOST OF EVENING IN HER ROOM SITTING QUIETLY. TOOK HS MEDS AFTER A SNACK, AND ASSISTED TO BED. SLEPT WELL THROUGH THE NIGHT.
--- NOTE | 2018-12-01 10:37 | NUR ---
Followup: Intake has decreased at meals past few days to 25-50% however pt receptive to receiving snacks and states likes the Ensure oral supplements. No new wt since 11/16, will request RN to obtain. Remains low nutrition risk
[2018-12-01 14:25] VITALS: BP 123/57
--- NOTE | 2018-12-01 17:00 | NUR ---
SW recieved notification [facility] that pt has been accepted for Level II screening, and is ready to be discharge. HEATHER will send out referral to [facility], [facility], and [facility].
[2018-12-01 18:30] VITALS: BP 123/57
--- NOTE | 2018-12-01 18:39 | NUR ---
ASSUMED CARE AT 0715 THIS MORNING. SHE HAS BEEN UP MOST OF THE SHIFT, EATING MEALS AND ATTENDING GROUPS. TOOK MEDICATIONS WITHOUT PROBLEMS NOTED. HAS BEEN QUIET AND SUBDUED TODAY BUT AFTER 5:30 P.M. SHE WAS CRYING AND TEARFUL. SHE WAS MUMBLING BUT THIS DIESEL ROLLER OPERATOR COULD NOT UNDERSTAND HER. SHE DID MAKE REFERENCES TO AV, STATING THAT MAN IN HER ROOM SCARED HER. SAT WITH HER FOR A WHILE. DENIED SI/HI. SHE WAS GOTTEN READY FOR BED AND HELPED INTO BED.
[2018-12-01 19:52] VITALS: BP 179/83
--- NOTE | 2018-12-01 22:51 | NUR ---
ASSUMED CARE OF THE PT AT 1915PM. ALERT ET ORIENTED TO PERSON ONLY. THE PT WAS SITTING IN THE DAYROOM WHEN THIS LANDFILL GAS COLLECTION SYSTEM OPERATOR CAME ON DUTY. SHE GRABBED THIS LANDFILL GAS COLLECTION SYSTEM OPERATOR'S WRIST AND WOULDN'T LET GO. SHE DENIES PAIN AT THIS TIME, DENIES ANXIETY AND DEPRESSION. WALKS WITH A WALKER, HAS A STEADY GAIT. REMAINS ON 12 MINUTE CHECKS FOR HER SAFETY.
--- NOTE | 2018-12-02 04:59 | NUR ---
THE PT HAS BEEN SLEEPING MOST OF THE NIGHT. GOT UP TO GO TO THE BATHROOM X1, USING HER WALKER TO GO TO THE BATHROOM AND BACK TO BED. REMAINS ON 12 MINUTE CHECKS.
--- NOTE | 2018-12-02 05:46 | NUR ---
THE PT SLEPT 8.2 HOURS LAST NIGHT.
[2018-12-02 07:30] VITALS: BP 136/56
--- NOTE | 2018-12-02 08:00 | NUR ---
PT EATING BREAKFAST WITH TEETH ON TABLE. DENIES ANY PAIN. USES WALKER. NO SWELLING TO FEET AT THIS TIME. LUNGS CLEAR. WANTED TO JUST GET THROUGH THE DAY.
--- NOTE | 2018-12-02 11:43 | NUR ---
PT HAS DRANK 2000ML OF WATER THIS AM.
[2018-12-02 14:42] VITALS: BP 136/56
--- NOTE | 2018-12-02 16:29 | NUR ---
HEATHER spoke with Jose Freitas from [facility] concerning pt care. HEATHER explained that there is release of information signed by the DPOA to provide information. HEATHER stated that she will have to contain consent from Dell Pandya who is the DPOA. Jose stated that she is very upset concerning this matter, and she will be calling Scarlet the director due to her speaking with her previously concerning the pt care. She stated staff have being providing information without a release. HEATHER explained due to HIPPA a release need to be signed. HEATHER stated that she will follow-up with the pt DPOA, and then proceed with information.
--- NOTE | 2018-12-02 16:33 | NUR ---
SW have recieved a verbal consent over the phone with Fidel Pandya concerning providing information about pt care.
--- NOTE | 2018-12-02 17:33 | NUR ---
PT EATING DINNER AT THIS TIME. TOOK MEDICATION WITHOUT PROBLEMS. DIDN'T SEE ANY [employer] [facility] TODAY. PT HAS OWN BIBLE NOW.
[2018-12-02 19:56] VITALS: BP 129/64
--- NOTE | 2018-12-02 22:36 | NUR ---
ASSUMED CARE OF THE PT AT 1915PM. ALERT TO PERSON ONLY. THIS PT WAS SITTING IN THE DINING ROOM WHEN THIS RESEARCH ASSOCIATE MOLECULAR BIOLOGY FIRST CAME ON DUTY. SHE TOOK HER HS MEDICATIONS WITHOUT ANY DIFFICULTY. LIKES TO DRINK WATER, SHE DROPPED HER WATER PITCHER ON THE FLOOR. DENIES ANXIETY AND DEPRESSION. DENIES FEELING SUICIDAL OR HOMICIDAL. WALKS WITH A WALKER TO HER ROOM. REMAINS ON 12 MINUTE CHECKS FOR HER SAFETY.
--- NOTE | 2018-12-03 04:08 | NUR ---
THE PT WAS SLEEPING AND THEN SCREAMED OUT, THIS MAPLE PRODUCTS MAKER WENT INTO THE PT'S ROOM AND SHE STATED THAT SHE HAD A NIGHTMARE.
--- NOTE | 2018-12-03 05:59 | NUR ---
THE PT SLEPT 7.6 HOURS LAST NIGHT.
--- NOTE | 2018-12-03 09:09 | NUR ---
0730: Report rec from noc shift, care assumed. Awake, in BR, small semi-formed BM noted in toilet. Assisted with pull-up brief, pt. ambulated to DR with assist of walker, gait slow/steady. Feeds self at meals, takes meds whole w/o difficulty. Appears drowsy, denies pain. No behaviors noted while in DR, participated in 0900 therapy group.
--- NOTE | 2018-12-03 16:31 | NUR ---
HEATHER spoke with Fidel the son concerning the referral sent to [facility], [facility], and [facility]. Fidel stated that he will be visitin the facility on December 04, 2018, and completing the Medicaid application. HEATHER explained that pt will be discharging on December 07, 2018 to [facility]. HEATHER will follow-up with upon discharge.
[2018-12-03 20:45] VITALS: BP 149/54
[2018-12-03 23:04] VITALS: BP 149/54
--- NOTE | 2018-12-04 03:36 | NUR ---
QUIET AND COOPERATIVE THIS PM. WATCHING TV. TOOK HS MEDS AFTER EVENING SNACK. WENT TO ROOM AND SLEPT. UP X1 DURING THE NIGHT TO CLEAN HER DENTURES. ESCORTED BACK TO BED AND CONTINUES TO SLEEP AT THIS TIME.
[2018-12-04 09:04] VITALS: BP 151/57
[2018-12-04 11:24] LABS: CALCIUM 9.6 mg/dL (8.5-10.1); CREATININE 1.7 mg/dL (0.6-1.0); POTASSIUM 4.4 mmol/L (3.5-5.1)
--- NOTE | 2018-12-04 11:36 | NUR ---
Weekly Recreational Therapy Progress Note Date of Admission: 11/15/18 Date of Activity Therapy Assessment: 11/18/2018 Activity Goal: Patient will participate in 2 recreational therapy groups per day until discharge. Initial Goal: Increase leisure awareness and coping skills to aid in adjustment of placement in LTC facility. Weekly progress towards goal: Achieving current goals Group participation level: Full Behaviors observed: Patient is attending groups and participating fully though at times appears more drowsy than others. Pt appears tearful at times but is easily calmed. Plan: No change towards goal
[2018-12-04 11:40] VITALS: BP 151/57
[2018-12-04 15:26] LABS: HEMATOCRIT 33.9 % (37.0-47.0); LYMPHOCYTES 8.8 % (24.0-44.0); MCH 26.6 pg (26.0-34.0); MCHC 32.5 g/dL (28.0-37.0); MCV 81.7 fL (80.0-100.0); MONOCYTES 8.3 % (1.0-8.0); PLATELET COUNT 278 thou/uL (150-400); POLYS 80.9 % (36.0-66.0); RBC 4.15 mil/uL (4.20-5.00); RDW 15.1 % (10.5-14.5); WBC 9.9 thou/uL (4.0-11.0)
--- NOTE | 2018-12-04 15:59 | NUR ---
ASSUMED CARE AT 0715 THIS MORNING. PT. ON THE UNIT, DRESSED IN HOSPITAL GOWNS. SHE STATED SHE DID NOT FEEL WELL. VSS. TOOK SHOWER TODAY. ATTENDED GROUPS AND COOPERATIVE WITH TAKING MEDICATIONS. LABS DRAWN BUT WERE UNREMARKABLE. DR. ZAMORA STATED HE WILL ADJUST THE MEDICATIONS A BIT TO SEE IF SHE WILL GET TO FEELING BETTER. SHE SAT ON THE UNIT THIS AFTERNOON. DENIES SI/HI. STATES SHE HAS NOT HAD ANY AVH TODAY. WHILE STITTING ON THE UNIT, SHE LOOKS CONSTANTLY DOWN, NO EYE CONTACT, RESPONDING VERY LITTLE TO OTHERS AROUND HER. SHE IS VERY SULLEN.
[2018-12-04 19:30] VITALS: BP 131/73
--- NOTE | 2018-12-05 02:35 | NUR ---
SITTING IN DAYROOM WITH PEERS UPON INITAL ASSESSMENT THIS PM- APPEARS TO BE NAPPING WHEN APPROACHED TO -EYES CLOSED AND CHIN TO CHEST-IS AROUSABLE TO VERBAL STIMULI-AND GREETED THIS DYEING MACHINE FEEDER BY NAME. VERBAL RESPONSES ARE DELAYED AND OFFERS ONLY 1-2 WORD RESPONSES TO QUESTIONS ASKED-FLAT AFFECT-APPEARS GUARDED-WITHDRAWN OFFERING NO SPONTANEOUS CONVERSATION. WAS COMPLIENT WITH HS MED ADMINISTRATION,ASSESSMENT AND VS BUT IS SOMULENT AND MINIMALLY VERBAL-ASSISTED TO BED AT APPROX 2130-GAIT STEADY WITH USE OF WALKER-INDEPENDENT IN COMPLETING HS CARES WITHOUT PROMPTING-DENIES C/O PAIN OR DISCOMFORT
--- NOTE | 2018-12-05 11:53 | NUR ---
HEATHER spoke with pt's son Maxx Pandya regarding palcement. he stated that he was looking at places with his brother but none have been decided yet. he stated that some of the referrls did not take medicaid. he requested that the referral be sent to [facility], this was completed by HEATHER ( [phone]) [phone]. He also requested that the referral be sent to a rehab in [place]. HEATHER caled and verified that [facility] takes medicaid and they confirmed this. Sent referral ythere too [phone]. Will assist as needed
[2018-12-05 14:40] VITALS: BP 117/47
--- NOTE | 2018-12-05 15:10 | NUR ---
ASSUMED CARE AT 0715 THIS MORNING. PT. CONTINUES TO BE DISORGANIZED, CONFUSED. SHE IS NOTED TO BE TEARFUL AND VERBALIZING AVH. DENIES SI/HI. SHE WANTED TO CLEAN UP TODAY AND WHEN SHE WANTED THE NURSING STAFFS ATTENTION ON THIS ISSUE, SHE SCREAMED REALLY LOUDLY. NATURAL RESOURCE ECONOMIST TALKED TO THE PT. ABOUT NOT SCREAMING TO GET ATTENTION. SHE STATED SHE WOULD NOT DO THAT AGAIN. SHE DID CLEAN UP IN THE TUB ROOM WITH STAFF ASSISTANCE. SHE ATE MEALS ON THE UNIT AND ATTENDED GROUPS. SHE CONTINIUES TO MUMBLE WHEN TALKING AND DROOLING FROM TIME TO TIME.
[2018-12-05 20:33] VITALS: BP 161/75
--- NOTE | 2018-12-06 05:25 | NUR ---
APPEARS DROWSY UPON INITIAL APPROACH THIS SHIFT AT 1900-SITTING IN DAYROOM WITH CHIN TO CHEST-HAIR IN EYES-DID RAISE HEAD AND GREET THIS NURSE UPON APPROACH-SPEECH IS SLURRED-DIFFICULT TO UNDERSTAND-STATES SHE DOES NOT FEEL WELL BUT IS UNABLE TO GIVE ANY MORE SPECIFIC INFORMATION -DENIES PAIN/ WHEN ASKED ABOUT MOOD OFFERS NO RESPONSE-GAIT IS SLOW/STEADY-TO BED AT APPROX. 2130-AT 2300 NOTED TO BE YELLING LOUDLY IN ROOM-STATING "DON'T BURY ME" JERKING TYPE MOVEMENTS OF UPPER EXTREMITIES-WAS ABLE TO STOP WHEN ASKED-
--- NOTE | 2018-12-06 16:27 | NUR ---
ASSUMED CARE OF PATIENT @ 0700. PATIENT WAS RESTING IN ROOM, ASSISTED UP TO DAYROOM TO EAT BREAKFAST. PATIENT ORIENTED TO PLACE AND PERSON. PATIENT NEEDED PROMPTING TO LIFT HEAD UP AND MAKE EYE CONTACT. UP WITH STEADY SLOW GAIT W/ASSIST OF WALKER. COMPLIANT W/MEDS. COOPERATIVE AND NO AGGRESSION NOTED. WILL CONTINUE TO MONITOR THROUGHOUT SHIFT.
--- NOTE | 2018-12-06 16:32 | NUR ---
PATIENT UP INDEPENDENTLY AMBULATING WITH WALKER. PATIENT STANDING IN ROOM READING BIBLE (PSALM 4). PATIENT SHARED W/PUBLIC HEALTH ADVISOR SHE HAS 5 SONS. VOIDED INDEPENDENTLY. STOOL SAMPLE COLLECTED @ 1000 FOR CDIFF PER ORDER. PATIENT W/DIARRHEA STOOL. AWAITING RESULTS FROM LAB. PATIENT ATTENDED GROUPS x2 TODAY. VISITED W/SON DURING BOTH VISITING HOURS. WORKED ON WORD SEARCH W/PEERS INTERMITTENTLY. NOTED TO FALL ASLEEP WHEN SITTING UP IN CHAIR AND SPEECH IS MUMBLED AND DIFFICULT TO UNDERSTAND AT TIMES. CONTINUE TO MONIOR PATIENT THROUGHOUT THE SHIFT.
[2018-12-06 20:34] VITALS: BP 121/59
--- NOTE | 2018-12-07 03:39 | NUR ---
SITTING IN DAYROOM WITH PEERS UPON INITIAL OBSERVATION THIS PM-NOTED TO HAVE HEAD LOWERED CHIN TO CHEST-HAIR COVERING EYES AND MAJORITY OF FACE-WHEN ASKED TO RAISE HER HEAD SO WE COULD CONVERSE DID SO BUT FACIAL GRIMACE OBSERVED-WHEN QUESTIONED STATES NECK FEELS "STIFF AND SORE" IS ABLE TO TURN HEAD FROMSIDE TO SIDE BUT AGAIN REPORTS DISCOMFORT AND COULD ONLY COMFORTABLY TURN HEAD SLIGHTLY WITHOUT DISCOMFORT-MILD COGWHEEL RIGIDITY UPON EXAM-CLINICIAN CONTACTED RE ABOVE AND 0RDERS RECEIVED-COGENTIN 1MG GIVEN PO WITH HS MEDS FOR ABOVE NOTED. WENT TO BED AT APPROX 2030 C/O FEELING TIRED-COMPLETED HS ADLS WITH [facility] AND REFUSED TO CHANGE OUT OF DRESS INTO GOWN- ONCE IN BED NOTED TO HAVE INCREASE IN ANXIETY YELLING OUT FREQUENTLY- WHEN STAFF GET TO ROOM IS UNABLE TO VERBALIZE WHAT SHE WAnts
[2018-12-07 06:06] LABS: HEMATOCRIT 31.6 % (37.0-47.0); HEMOGLOBIN 10.4 gm/dL (12.0-15.0); MCH 27.1 pg (26.0-34.0); RBC 3.85 mil/uL (4.20-5.00); WBC 7.2 thou/uL (4.0-11.0)
[2018-12-07 06:19] LABS: CALCIUM 9.1 mg/dL (8.5-10.1); CREATININE 1.7 mg/dL (0.6-1.0); MAGNESIUM 2.1 mg/dL (1.8-2.4); POTASSIUM 4.3 mmol/L (3.5-5.1)
[2018-12-07 07:45] VITALS: BP 122/53
[2018-12-07 08:18] VITALS: BP 122/53
--- NOTE | 2018-12-07 11:28 | NUR ---
Patient Name: JED TREVIÑO Admission Date: 11/15/18 DISCHARGE PLAN: Pt will be discharging to [facility] Care Assessment: Pt was assessed by Dr. Flower, and was diagnose with Schizoaffective Disorder, and Major Neurocognitve Disorder. Pt will need a memory care setting due to elopment risk. Level II Assessment: Level II accepted Transportation: Pt will be transported by the [facility] transportation. Special Instructions/Notes: Pt was assessed by MATT that she is unsafe to be home alone, pt need assistance with ADL's and medication reminders. DISCHARGE TO FACILITY: Memory Care unit Facility: [facility] Fax: Address: [address] [place] [id number] Contact Name: WILBERTO PCP: FAVIAN Psychiatrist: [facility]
[2018-12-07] MEDS ORDERED: SYNTHROID88 MCG PO (12:46)
[2018-12-07] MEDS ORDERED: TRAZODONE HCL50 MG PO (12:46)
[2018-12-07] MEDS ORDERED: FLOMAX0.4 MG PO (12:46)
[2018-12-07] MEDS ORDERED: HALOPERIDOL 5 MG5 MG PO ×2 (12:46)
[2018-12-07] MEDS ORDERED: BENZTROPINE MES1 MG PO (12:46)
[2018-12-07] MEDS ORDERED: ACIDOPHILUS1 EAC4 PO (12:46)
[2018-12-07] MEDS ORDERED: ATORVASTATIN CA10 MG PO (12:46)
[2018-12-07] MEDS ORDERED: SENNA-TIME S T1 EACH PO (12:46)
[2018-12-07] MEDS ORDERED: ARICEPT 5 MG TAB5 MG PO (12:46)
[2018-12-07] MEDS ORDERED: CATAPRES0.1 MG PO (12:46)
--- NOTE | 2018-12-07 13:26 | NUR ---
ASSUMED CARE AT 0715 TODAY. PT. UP ON UNIT. SHE ATE BREAKFAST AND LUNCH ON THE UNIT AND ATTENDED GROUPS. PT. APPROPRIATE ON THE UNIT TODAY. HER SON SHOWED UP TO REASSURE PT. SHE WOULD BE ALRIGHT AT THE [facility] ([phone]). REPORT WAS CALLED TO SARABJIT Fink AT THE [facility]. PT. LEFT WITH HER BELONGINGS, HER DISCHARGE PAPERS, SCRIPTS. LEFT IN W/C WITH TRAVEL DEPT. FROM [place]/
--- NOTE | 2018-12-09 22:57 | D ---
[facility] [place] [address] DISCHARGE SUMMARY Name: JED TREVIÑO Room #: 525B-B DIS IN M.R.#: [id number] Admission: 11/15/18 ������������������ Attend Phys: Elías Flower DO Discharge: 12/07/18 ������������������ Date of : 45 Report #: [id number] THIS REPORT FOR: //name// CC: Elías Flower FAM unknown DATE OF SERVICE: 12/07/2018 ASSISTANT COUNTY ENGINEER AT THE TIME OF DISCHARGE: Joycelyn Parker APRN. DISCHARGE DIAGNOSES: Schizoaffective disorder, moderate control; major neurocognitive disorder, likely mild. [facility] mental status exam score of 12/30 during admission. Discharged to [facility] in [place], cognitive level 2. DIET: Regular diet with protein supplement. ACTIVITY: Level as tolerated. She does use a walker. MEDICATIONS: The patient's medications are as follows, donepezil 5 mg p.o. daily for cognitive enhancement; tamsulosin 0.4 mg p.o. daily is for urinary retention; atorvastatin 10 mg p.o. daily for hyperlipidemia; clonidine 0.4 mg p.o. b.i.d. for hypertension; trazodone 25 mg p.o. 2200 p.r.n. for sleep; haloperidol 10 mg in the evening for psychosis and mood stabilization, 5 mg at 9:00 for psychosis and mood stabilization; Cogentin 0.5 mg p.o. b.i.d. for EPS; lactobacillus acidophilus 1 cap p.o. daily, probiotic; levothyroxine 88 mcg p.o. daily for hypothyroidism. She should have follow up by 12/21/2018 with consulting psychiatrist and primary medicine doctor/hospice bereavement coordinator at the nursing facility. LABORATORIES THIS ADMISSION ARE FOLLOWS: Most recent CBC on 12/07/2018 H and H 10.4 and 31.6. White count 7.2, platelets 253, which is relatively stable. Her hemoglobin has been running between 10 and 12. Chemistries on 12/07/2018, sodium 138, potassium 3.3, chloride 105, bicarbonate 28, anion gap 5, BUN 44, creatinine 1.7. In general, her creatinines have been running 1.5-1.8. She had a creatinine of 1.42 at [facility], estimated GFR 29, glucose 89, calcium 9.1, magnesium 2.1. Recommend interim followup of electrolytes and renal function and urinalysis most recently done on 11/26/2018 was negative as were the previous done on 11/17/2018 and 11/23/2018. C. diff was cancelled due to lack of criteria. REASON FOR ADMISSION: Hallucinations, disorganization, decompensation. She had several long-term hospitalizations including [facility] in [address] [address] DISCHARGE SUMMARY Name: JED TREVIÑO Room #: 525B-B DIS IN M.R.#: [id number] Admission: 11/15/18 ������������������ Attend Phys: Elías Flower, Discharge: 12/07/18 ������������������ Date of : 45 Report #: [id number] July and August. [facility] in 09/2018, and I think one other. HOSPITAL COURSE: The patient was admitted to Geriatric Psychiatry Unit. The patient had been given 400 mg Abilify Maintena as OP at [facility]. It is unclear why she decompensated on this. Given the risks, benefits and alternatives, I would like to be able to be careful on haloperidol. The patient tolerated this generally well during the last week when she had some episodes of of hollering and psychogenic movements and was disturbed by the noise in the milieu. This past weekend, Cogentin was added. She has had some concern of failing kidneys. I went ahead and reduced her Cogentin 0.5 mg b.i.d. The patient, unfortunately, will be from her for the first time outside the psychiatric hospitalization as is unable to care for her at home. I think the [facility] nursing facility situation will give an alternative option. PHYSICAL EXAMINATION: VITAL SIGNS: At the day of discharge, temperature 36.7, pulse 62, respirations 17, BP 122/53, pulse ox 100%. MUSCULOSKELETAL: Ambulates with a walker, kyphotic, disheveled. MENTAL STATUS EXAM: This is a well-developed, well-nourished, mildly obese female appearing older than stated age. Attention intact. Concentration limited. Speech fairly slow, soft and deliberate. No psychomotor agitation. No psychomotor retardation. Mood, affect congruent, constricted. Denied auditory, visual, or tactile hallucinations. Some helplessness. Some hopelessness. Denied homicidal intent or plan. Denied any suicidal intent or plan. Memory is variable. Insight limited. Judgment limited. Fund of knowledge at least average. Prognosis for this patient is guarded to poor given recurrent need for hospitalization, failure to be stabilized in the community. ��������������������������������������������� <ELECTRONICALLY SIGNED> ���������������������������������������� By: Elías Flower DO ��������������������������������������������� 12/09/18 [id number] Elías Flower DO /nt
== END 2018-12-07 13:15 | DRG 885 ==
LOC: SBH 20:23
PROVIDERS: Hospitalist; Internal Medicine; Nurse Practitioner; ADMIT Psychiatry & Neurology Psychiatry
DX: F25.0 Schizoaffective disorder, bipolar type (principal); R45.851 Suicidal ideations; N17.9 Acute kidney failure, unspecified; E87.1 Hypo-osmolality and hyponatremia; E66.9 Obesity, unspecified; R00.1 Bradycardia, unspecified; E86.0 Dehydration; G30.9 Alzheimer's disease, unspecified; F02.80 Dementia in other diseases classified elsewhere, unspecified severity, without behavioral disturbance, psychotic disturbance, mood disturbance, and anxiety; I12.9 Hypertensive chronic kidney disease with stage 1 through stage 4 chronic kidney disease, or unspecified chronic kidney disease; K21.9 Gastro-esophageal reflux disease without esophagitis; F01.50 Vascular dementia, unspecified severity, without behavioral disturbance, psychotic disturbance, mood disturbance, and anxiety; R33.9 Retention of urine, unspecified; N18.3 Chronic kidney disease, stage 3 (moderate); E78.5 Hyperlipidemia, unspecified; Z79.899 Other long term (current) drug therapy; Z87.440 Personal history of urinary (tract) infections; Z68.32 Body mass index [BMI] 32.0-32.9, adult; Z88.8 Allergy status to other drugs, medicaments and biological substances
CPT/HCPCS: 10880